=== PATIENT | female | born 1945 | race Caucasian/White ===

== ENCOUNTER → 2017-02-22 | Outpatient (CLI) | payer OTHER ==
[~2017-02-22] MED LIST: ACYCLOVIR 400400 MG PO; AMARYL2 MG PO; ANTIPYRINE-BENZ14 ML OT; ASPIRIN325 PO; BACTRIM PO; BAYER CHEWABLE81 MG PO; CIPROFLOXACIN500 M1 PO; FISH OIL 1,0001 EAC5 PO; FLAGYL500 MG PO; GLUCOPHAGE XR500 MG PO; IBUPROFEN 600600 M1 PO; LANTUS SOL100 UNIT/1 PO; LEVOTHROID PO; LEVOTHYROXINE0.05 MG PO; LIVALO2 MG PO; MEDROL DOSPAK21 TAB PO; METFORMIN HCL500 MG PO; MULTIVITAMINS PO; NAPROSYN500 MG PO; NEXIUM PO; NEXIUM40 MG PO; NORCO 5-325 TA1 EACH PO; PERCOCET 5-3251 EACH PO; PREDNISONE50 MG PO; PRINIVIL20 MG PO; PROVENTIL HFA6.7 G1 INH; TRICOR145 MG PO; VITAMIN D-32000 UNIT PO; ZOFRAN ODT4 MG PO
--- NOTE | ~2017-02-22 | 2DMMODE ---
[facility] [address] [employer] [place] [address] 2 D/M-MODE ECHOCARDIOGRAM Name: GRACEDWAYNE Room #: [facility]#: [id number] Admission: 02/22/17 Attend Phys: Portia Mckeon MD Discharge: Date of : 49 Date of Service: 02/22/171999 Report #: [id number] THIS REPORT FOR: //name// APPROVED REPORT Study performed: 02/22/2017 09:04:05 EXAM: Comprehensive 2D, Doppler, and color-flow Echocardiogram Patient Location: Out-Patient Other Information Study Quality: Adequate Indications Dyspnea, HLP, HTN, DM, family history 2D Dimensions RVDd: 25.81 mm LVEF(%): 60.41 (>50%) IVSd: 8.76 (7-11mm) LVOT Diam: 19.62 (18-24mm) LVDd: 36.22 mm PWd: 7.61 (7-11mm) Ascending Ao: 32.78 (22-36mm) LVDs: 24.80 (25-40mm) Aortic Root: 28.87 mm Quan's LVEF: 60.41 % Volumes Left Atrial Volume (Systole) Single Plane 4CH: 39.15 mL Single Plane 2CH: 37.43 mL LA ESV Index: 22.00 mL/m2 Aortic Valve AoV Peak Noble.: 1.75 m/s AO Peak Gr.: 12.26 mmHg LVOT Max P.40 mmHg AO Mean Gr.: 7.81 mmHg AO V2 Mean: 1.36 m/s LVOT Max V: 1.05 m/s AO V2 VTI: 38.38 cm PRANAY Vmax: 1.81 cm2 Mitral Valve E/A Ratio: 1.1 MV Decel. Time: 148.27 ms MV E Max Noble.: 0.97 m/s MV A Noble.: 0.86 m/s MV PHT: 43.00 ms [facility] [address] [place] [address] 2 D/M-MODE ECHOCARDIOGRAM Name: DWAYNE EDWARDS Room #: [facility]#: [id number] Admission: 02/22/17 Attend Phys: Portia Mckeon MD Discharge: Date of : 49 Date of Service: 02/22/171999 Report #: [id number] IVRT: 79.58 ms Pulmonary Valve PV Peak Noble.: 0.74 m/s PV Peak Gr.: 2.19 mmHg Pulmonary Vein P Vein S: 0.58 m/s P Vein A: 0.29 m/s P Vein D: 0.58 m/s P Vein A Dur.: 110.7 msec P Vein S/D Ratio: 1.00 Tricuspid Valve TR Peak Noble.: 2.41 m/s RAP Estimate: 5.00 mmHg TR Peak Gr.: 23.15 mmHg PA Pressure: 28.00 mmHg Left Ventricle The left ventricle is normal size. There is normal LV segmental wall motion. There is normal left ventricular wall thickness. Left ventricular systolic function is normal. LVEF is 55-60%. Grade II - pseudonormal filling dynamics. Right Ventricle The right ventricle is normal size. The right ventricular systolic function is normal. Atria The left atrium size is normal. The right atrium size is normal. Aortic Valve Aortic valve is calcified. No aortic regurgitation is present. There is no aortic valvular stenosis. Mitral Valve Mitral valve leaflets are structurally normal There is no mitral valve regurgitation noted. No evidence of mitral valve stenosis. Tricuspid Valve The tricuspid valve is normal in structure. There is trace tricuspid regurgitation. The right atrial pressure is estimated at 5 mmHg. Estimated PAP is 28mmHg. Pulmonic Valve The pulmonary valve is normal in structure. Trace pulmonic regurgitation. [facility] [address] [place] [address] 2 D/M-MODE ECHOCARDIOGRAM Name: DWAYNE EDWARDS Room #: [facility]#: [id number] Admission: 02/22/17 Attend Phys: Portia Mckeon MD Discharge: Date of : 49 Date of Service: 02/22/171999 Report #: [id number] Great Vessels The aortic root is normal in size. The ascending aorta is normal in size. IVC is normal in size and collapses >50% with inspiration. Pericardium There is no pericardial effusion. <Conclusion> Left ventricular systolic function is normal. There is normal LV segmental wall motion. LVEF is 55-60%. Grade II - pseudonormal filling dynamics. Aortic valve is calcified. No aortic regurgitation or stenosis Mitral valve leaflets are structurally normal. No insufficiency Pulmonary artery pressure could not be reliably ascertained. There is no pericardial effusion. <ELECTRONICALLY SIGNED> By: Fred Pineda MD, FACC 02/22/171999 99 99 Fred Pineda MD, FACC /INF
--- NOTE | ~2017-02-22 | EXE ---
[facility] [place] [address] STRESS ECHOCARDIOGRAM Name: TOSIN EDWARDSCHIP Kenney Room #: [facility]#: [id number] Admission: 02/22/17 Attend Phys: Portia Mckeon MD Discharge: Date of : 49 Date of Service: 02/23/17 0917 Report #: [id number] THIS REPORT FOR: //name// APPROVED REPORT Exam: Stress Echocardiogram Indication: Dyspnea Patient Location: Out-Patient Stress Nurse: Cornelia Thomas RN Status: routine HR: 88 bpm Medical History Allergies: Listed on wrksht Cardiac Risk Factors: HTN, Hyperlipidemia, DM, FHX of CAD Procedure The patient underwent an Exercise Stress Test using the Chapin Protocol. Blood pressure, heart rate, and EKG were monitored. An Echocardiogram was performed by fuel testing technician in four stages in quad fashion. At peak stress, four selected images were obtained and placed side by side with resting images for comparison. Testing Details HR Resting HR: 88 bpm Max Heart Rate (APMHR): 151 bpm Max HR Achieved: 164 bpm Target HR (85% APMHR): 128 bpm % of APMHR: 108 Recovery HR: 97 bpm HR response to stress: Normal HR response to stress BP Resting BP: 124/83 mmHg Max BP: 160/70 mmHg Recovery BP: 140/70 mmHg ECG Resting ECG: Sinus Rhythm Stress ECG: Sinus Rhythm ST Change: Normal Maximum ST Deviation: 0 mm Arrhythmia: None Recovery ECG: [facility] [address] [place] [address] STRESS ECHOCARDIOGRAM Name: DWAYNE EDWARDS Room #: [facility]#: [id number] Admission: 02/22/17 Attend Phys: Portia Mckeon MD Discharge: Date of : 49 Date of Service: 02/23/17916 Report #: [id number] Clinical Reason for Termination: Target HR achieved, moderate fatigue Stress Symptoms: Dyspnea Exercise duration: 9mins min Exercise capacity: 10.4 METs Angina Score: None Stress ECG Conclusion Clinical: Non-ischemic ECG: Non-ischemic Estrada treadmill score predicts low risk for adverse myocardial events. Estrada Treadmill Score is 9.0 which is Low risk. Pre-Stress Echo The resting Echocardiogram showed normal left ventricular contractility with an estimated Ejection Fraction of about 55-60%. No significant regurgitations noted. Post-Stress Echo The stress Echocardiogram showed normal left ventricular contractility with an estimated Ejection Fraction of about 60-65%. Other Information Study Quality: Adequate/lead fell off while patient tranfer to bed. <ELECTRONICALLY SIGNED> By: Fred Pineda MD, [facility] 02/23/17916 6 09 Fred Pineda MD, FACC /INF
== END ==
LOC: CV 09:51
DX: E11.65 Type 2 diabetes mellitus with hyperglycemia (principal); E11.29 Type 2 diabetes mellitus with other diabetic kidney complication; R06.09 Other forms of dyspnea